=== PATIENT | female | born 1980 | race Caucasian/White ===

== ENCOUNTER 2016-09-21 15:32 | Observation (INO) | payer OTHER ==
[2016-09-21 15:48] VITALS: RESP 16; TEMP 98.7; O2SAT 100
[2016-09-21] MEDS ORDERED: Sodium Chloride 0.9% 1,000 ML IV STA (15:58)
--- NOTE | 2016-09-21 16:21 | ED PDOC ---
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 pt denies dysuria but is c/o urinary frequency. pt states she is 12 weeks and has not seen [facility] [employer] yet. pt states for the past 2-3 days she has had slight lower abdominal cramping. she denies vaginal bleeding. denies back pain. no cp or sob. pt states she is taking her vitamins. pt states she is able to eat well as long as she avoids certain foods. no other complaints. Time/Duration: Other (2-3 days) Symptom Onset: Gradual Symptom Course: Intermittent Quality: Cramping Severity Level: 1 Past Medical History - Provider Review Nursing Documentation Reviewed: Yes - Travel History Have you recently traveled outside [place] w/in the past 3 mons?: No - Tetanus Immunization Tetanus Immunization: Unknown - Psychiatric Hx Substance Use: No Family/Social History - Physician Review Nursing Documentation Reviewed: Yes Family/Social History: Unknown Family HX Smoking Status: Never Smoked Hx Alcohol Use: No Hx Substance Use: No Allergies/Home Meds Allergies/Adverse Reactions: Allergies No Known Allergies Allergy (Verified 08/04/16 20:23) Review of Systems - Review of Systems Constitutional: absent: Fatigue, Fevers Respiratory: absent: SOB, Cough Cardiovascular: absent: Chest Pain, Palpitations Gastrointestinal: Abdominal Pain, Nausea, Vomiting. absent: Constipation, Diarrhea Genitourinary Female: Frequency. absent: Dysuria, Hematuria, Urine Output Changes, Vaginal Bleeding, Vaginal Discharge Musculoskeletal: absent: Arthralgias, Back Pain, Neck Pain Skin: absent: Rash, Pruritis, Skin Lesions Neurological: absent: Headache, Dizziness Physical Exam Vital Signs Reviewed: Yes Vital Signs Temp Pulse Resp BP Pulse Ox 09/21/16 15:36 98.7 F 78 16 111/71 100 Temperature: Afebrile Blood Pressure: Normal Pulse: Regular Respiratory Rate: Normal Appearance: Positive for: Well-Appearing, Non-Toxic, Comfortable Pain Distress: None Mental Status: Positive for: Alert and Oriented X 3 - Systems Exam Head: Present: Atraumatic Mouth: Present: Moist Mucous Membranes Neck: Present: Normal Range of Motion Respiratory/Chest: Present: Clear to Auscultation, Good Air Exchange. No: Respiratory Distress, Accessory Muscle Use Cardiovascular: Present: Regular Rate and Rhythm, Normal S1, S2. No: Murmurs Abdomen: Present: Tenderness (minimal suprapubic tenderness), Normal Bowel Sounds. No: Distention, Peritoneal Signs, Rebound, Guarding Genitourinary/Pelvic Exam: Present: Normal External Genitalia, Cervical os Closed, Other (chaparoned by Jazmin gomez RN). No: Vaginal Discharge, Vaginal Bleeding, Vaginal Lesions, Adenexal Tenderness, Adenexal Mass, Cervical Motion Tendernes, Odor Back: Present: Normal Inspection. No: CVA Tenderness Upper Extremity: Present: Normal Inspection Lower Extremity: Present: Normal Inspection Neurological: Present: GCS=15, Speech Normal Skin: Present: Warm, Dry, Normal Color. No: Rashes Psychiatric: Present: Alert, Oriented x 3 Medical Decision Making ED Course and Treatment: 09/21/16 16:22 36yr old female approx 12 weeks presents with 2-3 day history of lower abdominal cramping cbc: wnl cmp: wnl Lipase; wnl beta hcg; [id number] type/screen; 0+ UA: + leukocytes, +blood, moderate bacteria, wbc 10-15 Transvaginal US:FINDINGS: Limitation: Incomplete bladder distention and body habitus limit evaluation of trans-abdominal imaging. Uterus: Uterus measures approximately 17.8 x 7.7 x 13.3 cm. There is a single intrauterine gestation. Adnexa: Neither ovary is identified IMPRESSION: Limited evaluation of the gravid uterus due to body habitus EXAM: US , Transvaginal US - OB TRANSVAGINAL 08/04/2016 11:59:24 PM FINDINGS: Gestation: There is a single intrauterine gestation. There is a heart rate of 149 beats per minute. Placenta is fundal. Amniotic fluid volume appears normal. CRL: 77.1 mm BPD: 22.7 mm FL.: 13.1 mm Adnexa: Neither ovary could be identified. There are no adnexal masses. Cul-de-sac:There is no free fluid. IMPRESSION: 13 week 6 day single living intrauterine gestation, estimated date of delivery 03/23/17; appropriate growth and development since the prior study pt reassessment; pt non toxic well appearing; no distress. stable vitals. urine culture pending; will d/c home to f/u with [facility]. will start on nitrofurantoin for UTI. all results discussed in depth with patient and spouse using assistant manager airside operations phone; concrete hopper operator #: [id number] impression: abdominal pain, threatened , UTI take vitamins as prescribed. increase fluids Nitrofurantoin; 1 tablet twice daily x 10 days. Follow up with the SENIOR QUALITY ENGINEER within the next 2 days return immediately if symptoms worsen,persist or if new symptoms develop; high fevers, increasing abdominal pain, vaginal bleeding, dizziness, weakness or if any other concerning symptoms develop. - Medication Orders Current Medication Orders: Discontinued Medications Sodium Chloride (Sodium Chloride 0.9%) 1,000 mls @ 999 mls/hr IV .Q1H1M STA Stop: 09/21/16 16:58 Last Admin: 09/21/16 16:34 Dose: 999 MLS/HR eMAR Start Stop Document 09/21/16 16:34 HI (Rec: 09/21/16 16:34 HI [facility] [id number]) Intravenous Solution Start Date 09/21/16 Start Time 16:34 ED OBSERVATION Discharge: Yes Date of observation admission: 09/21/16 Time of observation admission: 15:56 - Observation admission statement Patient is being placed in observation because:: with abdominal pain - Goals of Observation Goals of observation are:: improvement in symptoms/case of pain - Progress Note Progress Note: 09/21/16 18:00 pt resting comfortably in er; no distress. awaiting US result 09/21/16 19:21 all results discussed with patient; pt non toxic well appearing; no distress. abdomen non tender; resting comfortably in er. Disposition/Present on Arrival - Present on Arrival Any Indicators Present on Arrival: No History of DVT/PE: No History of Uncontrolled Diabetes: No Urinary Catheter: No History of Decub. Ulcer: No History Surgical Site Infection Following: None - Disposition Have Diagnosis and Disposition been Completed?: Yes Diagnosis: UTI (urinary tract infection), Threatened Disposition: HOME/ ROUTINE Disposition Time: 19:21 Patient Plan: Discharge Patient Problems: Current Active Problems Problem Status Diagnosed Threatened Acute UTI (urinary tract infection) Acute Condition: GOOD
[2016-09-21 16:47] LABS: ADD MANUAL DIFF? NO
[2016-09-21 16:56] LABS: URINE BILIRUBIN NEGATIVE (NEGATIVE); URINE BLOOD LARGE (NEGATIVE); URINE GLUCOSE (UA) NEGATIVE (NEGATIVE); URINE KETONE 15 mg/dL (NEGATIVE); URINE LEUKOCYTE ESTERASE SMALL Leu/uL (NEGATIVE); URINE PROTEIN TRACE mg/dL (<30 mg/dL)
[2016-09-21 16:58] LABS: BASO # 0.02 K/mm3 (0.0-2.0); BASO % 0.2 % (0.0-3.0); EOS # 0.1 (0.0-0.7); EOS % 0.7 % (1.5-5.0); GRAN # 6.35 (1.4-6.5); GRAN % 69.7 % (50.0-68.0); HEMATOCRIT 33.9 % (36.0-48.0); LYMPH # 2.2 (1.2-3.4); LYMPH % 24.2 % (22.0-35.0); MEAN CELL VOLUME 88.1 fL (80.0-105.0); MEAN CORPUSCULAR HEMOGLOBIN 31.2 pg (25.0-35.0); MEAN CORPUSCULAR HGB CONC 35.4 g/dl (31.0-37.0); MEAN PLATELET VOLUME 10.9 fl (7.0-11.0); MONO # 0.5 (0.1-0.6); MONO % 5.2 % (1.0-6.0); PLATELET COUNT 235 10^3/uL (120.0-450.0); RED CELL DISTRIBUTION WIDTH 14.5 % (11.5-14.5); WHITE BLOOD COUNT 9.1 10^3/ul (4.5-11.0)
[2016-09-21 17:01] LABS: URINE APPEARANCE CLOUDY (CLEAR); URINE COLOR YELLOW (YELLOW)
[2016-09-21 17:06] LABS: ALKALINE PHOSPHATASE 80 U/L (38-133); ALT/SGPT 26 U/L (7-56); AST/SGOT 22 U/L (15-39); BILIRUBIN,TOTAL 0.5 mg/dL (0.2-1.3); BLOOD UREA NITROGEN 6 mg/dL (7-21); CALCIUM 9.4 mg/dL (8.4-10.5); CARBON DIOXIDE 24 mmol/L (21-33); CHLORIDE 100 mmol/L (98-107); GFR AFRICAN-AMERICAN > 60; GLUCOSE,RANDOM 85 mg/dL (70-110); LIPASE 153 U/L (23-300); POTASSIUM 3.7 mmol/L (3.6-5.0); SODIUM 134 mmol/L (132-148); TOTAL PROTEIN 7.2 g/dL (5.8-8.3)
[2016-09-21 17:08] LABS: URINE BACTERIA MOD (NEG); URINE RBC 0 - 2 /hpf (0-2)
--- NOTE | 2016-09-21 19:05 | US ---
EXAM: US First Trimester, Transabdominal CLINICAL HISTORY: 36 years old, female; Pain; complicated by abdominal or pelvic pain; Generalized abdominal pain; First trimester; Gestational age or lmp: 6 week 6 day IUP seen on 08/05/16; TECHNIQUE: Real-time transabdominal obstetrical ultrasound of the maternal pelvis and a first trimester with image documentation. COMPARISON: OB ultrasound 08/04/16 FINDINGS: Limitation: Incomplete bladder distention and body habitus limit evaluation of trans-abdominal imaging. Uterus: Uterus measures approximately 17.8 x 7.7 x 13.3 cm. There is a single intrauterine gestation. Adnexa: Neither ovary is identified IMPRESSION: Limited evaluation of the gravid uterus due to body habitus EXAM: US , Transvaginal CLINICAL HISTORY: 36 years old, female; Pain; complicated by abdominal or pelvic pain; Generalized abdominal pain; First trimester; Gestational age or lmp: 6 week 6 day IUP seen on 08/05/16 TECHNIQUE: Real-time transvaginal obstetrical ultrasound of the maternal pelvis and a first trimester with image documentation. Transvaginal imaging was used for better evaluation of the fetus and adnexa. EXAM DATE/TIME: 09/21/2016 3:58 PM COMPARISON: US - OB TRANSVAGINAL 08/04/2016 11:59:24 PM FINDINGS: Gestation: There is a single intrauterine gestation. There is a heart rate of 149 beats per minute. Placenta is fundal. Amniotic fluid volume appears normal. CRL: 77.1 mm BPD: 22.7 mm FL.: 13.1 mm Adnexa: Neither ovary could be identified. There are no adnexal masses. Cul-de-sac:There is no free fluid. IMPRESSION: 13 week 6 day single living intrauterine gestation, estimated date of delivery 03/23/17; appropriate growth and development since the prior study
[2016-09-21 19:56] VITALS: BP 114/80; PULSE 80
== END 2016-09-21 19:23 | disposition home or self-care (01) ==
LOC: ED 15:32 → EROBSV 15:56
PROVIDERS: ADMIT Emergency Medicine; ATTEND Emergency Medicine
DX: O20.0 Threatened abortion (principal); O23.41 Unspecified infection of urinary tract in pregnancy, first trimester; Z3A.13 13 weeks gestation of pregnancy
CPT/HCPCS: 76817; 80053; 81001; 83690; 84702; 85025; 86850; 86900; 87086; 99284; G0378; J7040